=== PATIENT | female | born 1995 | race Caucasian/White ===

== ENCOUNTER 2018-01-16 22:29 | Emergency (ER) | payer SELFPAY ==
[2018-01-16] MEDS ORDERED: IBUPROFEN 600 MG TAB PO STA (23:56)
[2018-01-16] MEDS ORDERED: DEXAMETHASONE SOD PHOSPHATE 10 MG/ML 1 ML VIAL IM STA (23:56)
[2018-01-16] MEDS ORDERED: ACETAMINOPHEN TAB 325 MG TAB PO STA (23:56)
[2018-01-17] MEDS ORDERED: AMOXICILLIN 500 MG CAP PO STA (01:27)
--- NOTE | 2018-01-17 01:29 | ED ---
ENT HPI - General Chief complaint: ENT Stated complaint: Throat swelling Time Seen by Provider: 01/16/18 23:53 Source: patient Mode of arrival: ambulatory Limitations: no limitations - History of Present Illness Initial comments: 22-year-old female patient presents to the emergency department today for evaluation of sore throat, throat swelling, and fever. Patient states that she has been ill over the last 2-3 days. States that tonight her throat started to feel tighter and that she couldn't breathe. She was concerned she may be having an ALLERGIC reaction. She denies starting any new medications or exposure to new substances. She denies any new foods, lotions, perfumes, creams , or insects. She denies any rash or itching. Patient states that she did develop a fever today. States that she took Tylenol earlier in the day and some DayQuil without much relief. Patient states she is having some mild nasal drainage with this. Denies any coughing. Denies any sick contacts. Patient denies any recent chest pain, abdominal pain, nausea, vomiting, diarrhea, constipation, back pain, numbness, tingling, dizziness, weakness, hematuria, dysuria, urinary urgency, urinary frequency, headache, visual changes, or any other complaints. - Related Data Home Medications Medication Instructions Recorded Confirmed ARIPiprazole [Abilify] 5 mg PO DAILY 05/27/15 05/27/15 Escitalopram [Lexapro] 20 mg PO DAILY 05/27/15 05/27/15 Mirtazapine [Remeron] 15 mg PO DAILY 05/27/15 05/27/15 lamoTRIgine [LaMICtal] 25 mg PO BID 05/27/15 05/27/15 Previous Rx's Medication Instructions Recorded Amoxicillin 500 mg PO Q8H #30 capsule 01/17/18 Allergies Allergy/AdvReac Type Severity Reaction Status Date / Time No Known Allergies Allergy Verified 01/16/18 22:44 Review of Systems ROS Statement: Those systems with pertinent positive or pertinent negative responses have been documented in the HPI. ROS Other: All systems not noted in ROS Statement are negative. Past Medical History Past Medical History: No Reported History History of Any Multi-Drug Resistant Organisms: None Reported Past Surgical History: No Surgical Hx Reported Past Psychological History: Anxiety, Depression Smoking Status: Never smoker Past Alcohol Use History: Rare Past Drug Use History: None Reported General Exam Limitations: no limitations General appearance: alert, in no apparent distress, other (This is a well- developed, well-nourished adult female patient in no acute distress. Vital signs upon presentation are temperature 99.8F, pulse 127, respirations 28, blood pressure 123/73, pulse ox 99% on room air.) Eye exam: Present: normal appearance, PERRL, EOMI. Absent: scleral icterus, conjunctival injection, periorbital swelling ENT exam: Present: normal exam, mucous membranes moist, TM's normal bilaterally. Absent: normal oropharynx (Oropharyngeal erythema, tonsillar hypertrophy, left tonsillar exudate noted.) Neck exam: Present: normal inspection. Absent: tenderness, meningismus, lymphadenopathy Respiratory exam: Present: normal lung sounds bilaterally. Absent: respiratory distress, wheezes, rales, rhonchi, stridor Cardiovascular Exam: Present: normal rhythm, tachycardia, normal heart sounds. Absent: systolic murmur, diastolic murmur, rubs, gallop, clicks GI/Abdominal exam: Present: soft, normal bowel sounds. Absent: distended, tenderness, guarding, rebound, rigid Neurological exam: Present: alert, oriented X3, CN II-XII intact Psychiatric exam: Present: normal affect, normal mood Skin exam: Present: warm, dry, intact, normal color. Absent: rash Course Vital Signs 01/16/18 01/17/18 01/17/18 22:41 00:57 02:34 Temperature 99.8 F H 101.4 F H 99.8 F H Pulse Rate 127 H 122 H 106 H Respiratory 28 H 20 18 Rate Blood Pressure 123/73 125/71 129/79 O2 Sat by Pulse 99 97 97 Oximetry Medical Decision Making - Medical Decision Making 22-year-old female patient presented to the emergency department today for complaints of sore throat, throat swelling, and fever. Physical examination did reveal swollen, erythematous tonsils. There was exudate from the left tonsil. Remainder of exam was unremarkable. Shot screen is negative. Heterophile was negative. Given patient's fever and exudate we will treat with amoxicillin for tonsillitis. Patient is instructed to follow-up with her primary care physician or research professor for further evaluation. We did discuss alternating Tylenol and Motrin for pain and fever control. Return parameters discussed in detail. She verbalizes understanding and agrees this plan. - Lab Data Lab Results 01/17/18 01/17/18 Range/Units 00:01 00:56 Heterophile Antibody Negative (Negative) Group A Strep Rapid Negative (Negative) Disposition Clinical Impression: Pharyngitis Disposition: HOME SELF-CARE Condition: Good Instructions: Pharyngitis (ED) Additional Instructions: Alternate Tylenol and Motrin for pain and fever control. Do saltwater gargles. Complete antibiotic prescription and full. Follow-up with her primary care physician for recheck in 1-2 days. Return here immediately for any new, worsening, or concerning symptoms. Prescriptions: Amoxicillin 500 mg PO Q8H #30 capsule Is patient prescribed a controlled substance at d/c from ED?: No Referrals: None,Stated [Primary Care Provider] - 1-2 days Time of Disposition: 01:29
[2018-01-17 02:35] VITALS: BP 129/79; PULSE 106; RESP 18; TEMP 99.8
== END 2018-01-17 02:35 | disposition home or self-care (01) ==
LOC: EC 22:29
DX: J03.90 Acute tonsillitis, unspecified (principal); R00.0 Tachycardia, unspecified; F32.9 Major depressive disorder, single episode, unspecified; F41.9 Anxiety disorder, unspecified; Z79.899 Other long term (current) drug therapy
CPT/HCPCS: 36415; 86308; 87081; 87430; 99283; 96372; J1100